=== PATIENT | female | born 2005 | race African-American/Black ===

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

== ENCOUNTER 2024-05-14 18:19 | Emergency (ER) | payer SELFPAY, OTHER | END 2024-05-14 21:54 | disposition home or self-care (01) | LOC: ERS 18:19 | DX: S80.01XA Contusion of right knee, initial encounter (principal); M79.645 Pain in left finger(s); V49.59XA Passenger injured in collision with other motor vehicles in traffic accident, initial encounter; W22.12XA Striking against or struck by front passenger side automobile airbag, initial encounter | CPT/HCPCS: 99283 ==

== ENCOUNTER 2025-05-20 13:42 | Outpatient (CLI) | payer OTHER | END 2025-05-20 13:43 | disposition home or self-care (01) | LOC: ULT 13:42 | PROVIDERS: ATTEND Family Medicine | DX: Z34.03 Encounter for supervision of normal first pregnancy, third trimester (principal); Z3A.29 29 weeks gestation of pregnancy | CPT/HCPCS: 76805 ==